=== PATIENT | female | born 1980 | race Caucasian/White ===

== ENCOUNTER 2018-01-31 21:03 | Inpatient (IN) | END 2018-02-02 15:02 | disposition home or self-care (01) | DRG 313 ==

== ENCOUNTER 2018-12-20 00:02 | Emergency (ER) | payer OTHER ==
[~2018-12-20] VITALS: Ht 157.5 cm; Wt 91.8 kg
[~2018-12-20 00:02] MED LIST: FER325 PO; OMEP20CA16 PO
[2018-12-20 00:24] VITALS: Ht 157.5 cm; Wt 91.8 kg
[2018-12-20] MEDS ORDERED: CYCL5TAB PO (03:20)
[2018-12-20] MEDS ORDERED: CALC-143 PO (03:20)
[2018-12-20] MEDS ORDERED: NAPR-685 PO (03:20)
[2018-12-20] MEDS ORDERED: CYAN100080 PO (03:20)
[2018-12-20] MEDS ORDERED: DICL100G33 TOPICAL (03:20)
--- NOTE | 2018-12-20 04:10 | ERD ---
ER Documentation Chief Complaint Chief Complaint chest pain since 1600 HPI This is a 38-year-old female with a past medical history of prediabetes, GERD who is presenting with left-sided chest and shoulder pain, beginning this evenin g, exacerbated by movement of the left shoulder. The patient has had this in the past and has been worked up for this. The patient reports that the last time this happened, she was told that everything was normal. The patient reports improvement of her pain when she does not move. She does not endorse any trauma or injury. She denies any diaphoresis or lightheadedness or dizziness or nausea or vomiting or shortness of breath. The patient denies feeling sick recently. The patient denies fever or chills. The patient has had no headache or vision changes. The patient does not endorse neck or back pain. The patient denies abdominal pain. The patient denies changes to bowel movements or urination. The patient has had no focal deficits. The patient has had no weakness or numbness or tingling to the face or extremities. ROS All systems reviewed and are negative except as per history of present illness. Medications Home Meds Reported Medications Calcium Citrate/Vitamin D (Citracal-Vitamin D 200 MG-250) 1 Each Tablet, 1 EACH PO BID, TAB 12/20/18 Cyanocobalamin* (Vitamin B-12*) 1,000 Mcg Tablet.sa, 1000 MCG PO DAILY, TAB 12/20/18 Cyclobenzaprine Hcl* (Cyclobenzaprine Hcl*) 5 Mg Tablet, 5 MG PO DAILY 12/20/18 Diclofenac Sodium (Diclofenac Sodium) 100 Gm Gel..gram., 100 GM TOPICAL PRN for PAIN 12/20/18 Naproxen* (Naproxen*) 375 Mg Tablet, 375 MG PO BID for 30 Days, #60 12/20/18 Omeprazole* (Omeprazole*) 20 Mg Capsule.dr, 20 MG PO DAILY, #30 CAP 01/31/18 Ferrous Sulfate* (Ferrous Sulfate*) 325 Mg Tabec, 325 MG PO BID, TAB 01/31/18 Allergies Allergies: Coded Allergies: No Known Allergy (Unverified , 12/20/18) PMhx/Soc History of Surgery: Yes (cholecystectomy) Anesthesia Reaction: No Hx Neurological Disorder: No Hx Respiratory Disorders: No Hx Cardiac Disorders: No Hx Psychiatric Problems: No Hx Miscellaneous Medical Probl: Yes (prediabetic) Hx Alcohol Use: No Hx Substance Use: No Hx Tobacco Use: No Smoking Status: Never smoker FmHx Family History: No diabetes Physical Exam Vitals Vital Signs Date Temp Pulse Resp B/P (MAP) Pulse Ox O2 O2 Flow FiO2 Time Delivery Rate 12/20/18 98.3 78 18 123/77 97 Room Air 02:33 (92) 12/20/18 98.3 85 18 130/81 100 Room Air 01:58 (97) 12/20/18 98.3 100 18 160/71 97 00:24 (100) Physical Exam Const: No apparent distress, well-developed, well-nourished Head: Normocephalic, Atraumatic Eyes: Normal Conjunctiva. Extraocular movements intact. Pupils equal, round and reactive to light ENT: Normal External Ears, Nose and Mouth. Neck: Full range of motion. No meningismus. Resp: Clear to auscultation bilaterally, No wheezes, rales or rhonchi Cardio: Regular rate and rhythm. No murmurs, rubs or gallops Abd: Soft, non tender, non distended. Normal bowel sounds Skin: No petechiae or rashes Back: No midline tenderness. No CVA tenderness Ext: No cyanosis, or edema. Full range of motion to the left shoulder. Neur: Awake and alert, oriented 4. Cranial nerves intact. No facial droop. Normal strength, sensation and coordination. Psych: Normal Mood and Affect Result Diagram: 12/20/18 0150 12/20/18 0150 Results 24 hrs Laboratory Tests Test 12/20/18 01:50 White Blood Count 10.0 10^3/ul Red Blood Count 4.34 10^6/ul Hemoglobin 12.4 g/dl Hematocrit 38.6 % Mean Corpuscular Volume 88.9 fl Mean Corpuscular Hemoglobin 28.6 pg Mean Corpuscular Hemoglobin Concent 32.1 g/dl Red Cell Distribution Width 12.7 % Platelet Count 331 10^3/UL Mean Platelet Volume 9.0 fl Immature Granulocytes % 0.400 % Neutrophils % 56.0 % Lymphocytes % 31.9 % Monocytes % 7.5 % Eosinophils % 3.7 % Basophils % 0.5 % Nucleated Red Blood Cells % 0.0 /100WBC Immature Granulocytes # 0.040 10^3/ul Neutrophils # 5.6 10^3/ul Lymphocytes # 3.2 10^3/ul Monocytes # 0.8 10^3/ul Eosinophils # 0.4 10^3/ul Basophils # 0.1 10^3/ul Nucleated Red Blood Cells # 0.0 10^3/ul Sodium Level 143 mmol/L Potassium Level 3.8 mmol/L Chloride Level 104 mmol/L Carbon Dioxide Level 30 mmol/L Anion Gap 9 Blood Urea Nitrogen 8 mg/dl Creatinine 0.57 mg/dl Est Glomerular Filtrat Rate mL/min > 60 mL/min Glucose Level 114 mg/dl Calcium Level 9.5 mg/dl Troponin I < 0.012 ng/ml Procedures/MDM MDM The patient's presentation warrants further investigation. Previous medical records, if available, were reviewed. LABS The patient's laboratory testing was obtained and reviewed. No emergent treatment was required unless described below. CBC: No E/o of systemic infection or severe anemia or thrombocytopenia BMP: No E/o severe acidosis or alkalosis or renal failure or diabetic ketoacidosis Troponin: No E/o acute ischemia EKG EKG read by me: Rate/Rhythm: Regular rate and rhythm at a rate of 92 bpm Intervals: Normal. Incomplete right bundle branch block Clarissa: Normal Impression: No evidence of acute ischemia or arrhythmia IMAGING Imaging and Radiology interpretation reviewed. CXR FINDINGS: The cardiomediastinal silhouette is within normal limits. There is persistent moderate elevation right hemidiaphragm. There is mild right lower lung zone subsegmental atelectasis. There is no evidence for focal consolidatio n. There is no evidence for congestive heart failure. There is no evidence for pneumothorax. The osseous structures are intact. IMPRESSION: Persistent moderate right hemidiaphragm elevation with compressive subsegmental atelectasis. Electronically viewed and signed by Husam Calvillo MD on 12/20/2018 03:06 TREATMENT/DISPOSITION The patient presents with chest and shoulder pain. A musculoskeletal etiology is certainly a possibility, but this is a diagnosis of exclusion. A cardiac workup was completed. The patient's chest xray does not reveal pneumonia or pneumothorax or pleural effusions or pulmonary edema. She does not have a widened mediastinum and does not have signs or symptoms concerning for thoracic aortic aneurysm or dissection. The patient does not have pneumomediastinum or si gns concerning for esophageal tear or rupture. The patient has no clinical or radiographic signs of pericardial effusion or tamponade. The patient does not have pneumoperitoneum and I have decreased suspicion of viscus perforation as possible referred pain. The patient does not have a history of heart failure and I have low suspicion for this. The patient does not have a diagnosis of COPD and is not wheezing today. The patient is not tachypneic or hypoxic. The patient is breathing comfortably and without pleuritic pain. The patient is not on hormonal therapy. The patient has no history of clotting or bleeding disorders. The patient has no calf tenderness. The patient has had no hemoptysis. I have decreased suspicion for PE. The patient's troponin and EKG are reassuring. I have low suspicion for acute coronary syndrome. The patient's HEART score is equal to or less than 3. This stratifies the patient into the low risk (<1%) group for an major adverse cardiac event within the next 30 days. Shared decision making was enacted. The risks and benefits of admission and discharge were discussed with the patient and it was ultimately decided that the patient would be discharged with close outpatient follow up and evaluation for functional testing within 72 hours. The patient was treated with Toradol. Upon reevaluation of the patient, symptoms have improved. No emergent diagnoses were identified. At this time, I feel that the patient stable for discharge. The patient was instructed to follow-up with a primary care physician in 1-3 days. The patient will be given strict precautions with which to return to the emergency department. Prescriptions: Ibuprofen The patient's blood pressure was elevated at greater than 120/80 while in the emergency department. The patient was otherwise stable with no evidence of hypertensive urgency or emergency. The patient does not require admission for blood pressure control. I have discussed with the patient the risks of hypertension. I have instructed the patient to return to the ER for any new or worsening symptoms including chest pain, shortness of breath, headache, blurred vision, confusion, nausea, vomiting or LOC. I have advised the patient to follow up with the primary care physician for outpatient monitoring and treatment for hypertension in 1-3 days. Disclaimer: Inadvertent spelling and grammatical errors are likely due to EHR/dictation software use and do not reflect on the overall quality of patient care. Note that the electronic time recorded on this note does not necessarily reflect the actual time of the patient encounter. Departure Diagnosis: Primary Impression: Nonspecific chest pain Additional Impression: Left shoulder pain Chronicity: acute Qualified Codes: M25.512 - Pain in left shoulder Condition: Stable ILA MI MD Dec 20, 2018 04:10
[2018-12-20] MEDS ORDERED: KETOROLAC 15 MG INJ IV STA (04:16)
[2018-12-20] MEDS ORDERED: IBUP-1542 PO (04:19)
[2018-12-20 04:31] VITALS: BP 114/81; PULSE 77; RESP 18
== END 2018-12-20 04:33 | disposition home or self-care (01) ==
LOC: E/R 00:02
DX: M25.512 Pain in left shoulder (principal)
CPT/HCPCS: 36415; 71045; 80048; 84484; 85025; 93005; 96374; J1885; Z7502

== ENCOUNTER 2019-02-12 09:53 | Day surgery (SDC) | payer OTHER ==
[~2019-02-12] VITALS: Ht 160 cm; Wt 90.8 kg
[~2019-02-12 09:53] MED LIST changes: +CALC-143 PO; +CYAN100080 PO; +CYCL5TAB PO; +DICL100G33 TOPICAL; +IBUP-1542 PO; +NAPR-685 PO
[2019-02-12 10:27] VITALS: Ht 160 cm; Wt 90.8 kg
[2019-02-12 10:53] VITALS: BP 116/75; PULSE 81; RESP 18
--- NOTE | 2019-02-12 11:08 | PREAC ---
Date/Time of Note Date/Time of Note DATE: 02/12/19 TIME: 11:07 Anesthesia Eval and Record Evaluation Time Pre-Procedure Interview DATE: 02/12/19 TIME: 11:07 Age 38 Sex female NPO: 8 hrs Preoperative diagnosis ABDOMINAL PAIN, DIARRHEA Planned procedure EGD AND COLON Past Medical History Past Medical History: Includes Musculoskeletal: Osteoarthritis GI: GERD, Obesity Surgery & Anesthesia Issues No known issue Meds Anticoagulation: No Beta Alexa within 24 hr: No Reason Beta Alexa not given: Pt. not on B-Alexa Active Scripts Ibuprofen* (Motrin*) 600 Mg Tab, 600 MG PO Q6H PRN for PAIN AND/OR INFLAMMATION, #30 TAB Prov:ILA MI MD 12/20/18 Reported Medications Calcium Citrate/Vitamin D (Citracal-Vitamin D 200 MG-250) 1 Each Tablet, 1 EACH PO BID, TAB 12/20/18 Cyanocobalamin* (Vitamin B-12*) 1,000 Mcg Tablet.sa, 1000 MCG PO DAILY, TAB 12/20/18 Naproxen* (Naproxen*) 375 Mg Tablet, 375 MG PO BID for 30 Days, #60 12/20/18 Omeprazole* (Omeprazole*) 20 Mg Capsule.dr, 20 MG PO DAILY, #30 CAP 01/31/18 Discontinued Reported Medications Cyclobenzaprine Hcl* (Cyclobenzaprine Hcl*) 5 Mg Tablet, 5 MG PO DAILY 12/20/18 Diclofenac Sodium (Diclofenac Sodium) 100 Gm Gel..gram., 100 GM TOPICAL PRN for PAIN 12/20/18 Ferrous Sulfate* (Ferrous Sulfate*) 325 Mg Tabec, 325 MG PO BID, TAB 01/31/18 Meds reviewed: Yes Allergies Coded Allergies: No Known Allergy (Unverified , 12/20/18) Allergies Reviewed: Yes Labs/Studies Labs Reviewed: Reviewed by anesthesiologist test: Negative Pre-procedure Exam Last vitals Vital Signs Date Temp Pulse Resp B/P (MAP) Pulse Ox O2 O2 Flow FiO2 Time Delivery Rate 02/12/19 98.7 81 18 116/75 98 Room Air 10:53 (89) Airway: Adequate mouth opening, Adequate thyromental dist Mallampati: Mallampati II Teeth: Normal Lung: Normal Heart: Normal ASA Physical Status ASA physical status: 2 Emergency: None Planned Anesthetic General/MAC: MAC Planned Pain Management Parenteral pain med Pre-operative Attestations Prior to commencing anesthesia and surgery, the patient was re-evaluated, there was verification of: *The patient's identity *The results of appropriate recent lab work and preoperative vital signs *The above evaluation not changing prior to induction *Anesthetic plan, risk benefits, alternative and complications discussed with patient/family; questions answered; patient/family understands, accepts and wishes to proceed. TASHA LAWRENCE Feb 12, 2019 11:08
[2019-02-12] MEDS ORDERED: LIDOCAINE 2% (SDV) 5 ML INJ ONE (11:11)
[2019-02-12] MEDS ORDERED: PROPOFOL 60 ML ONE (11:11)
[2019-02-12] MEDS ORDERED: EPHEDrine SULFATE 50 MG/5 ML SYG IV PRN (11:30)
[2019-02-12] MEDS ORDERED: FENTAnyl 50 MCG/ML VIAL IV PRN (11:30)
[2019-02-12] MEDS ORDERED: hydrALAzine 20 MG INJ IV PRN (11:30)
[2019-02-12] MEDS ORDERED: LABETALOL HCL 20MG INJ IV PRN (11:30)
[2019-02-12] MEDS ORDERED: ONDANSETRON 4 MG INJ IV PRN (11:30)
--- NOTE | 2019-02-12 11:47 | PAC ---
Date/Time of Note Date/Time of Note DATE: 02/12/19 TIME: 11:47 Post-Anesthesia Notes Post-Anesthesia Note Last documented vital signs Vital Signs Date Temp Pulse Resp B/P (MAP) Pulse Ox O2 O2 Flow FiO2 Time Delivery Rate 02/12/19 98.7 81 18 116/75 98 Room Air 1147 (89) Activity: WNL Respiratory function: WNL Cardiovascular function: WNL Mental status: Baseline Pain reasonably controlled: Yes Hydration appropriate: Yes Nausea/Vomiting absent: Yes TASHA LAWRENCE Feb 12, 2019 11:47
[2019-02-12 11:56] VITALS: BP 114/62; PULSE 82; RESP 18
[2019-02-12 12:01] VITALS: BP 112/61; PULSE 82; RESP 18
[2019-02-12 12:06] VITALS: BP 119/64; PULSE 90; RESP 20
--- NOTE | 2019-02-12 16:56 | CONS ---
DATE OF ADMISSION: 02/12/2019 DATE OF CONSULTATION: PATIENT NAME: STEWART GOEL TYPE OF CONSULTATION: Preoperative gastroenterology. Dear Dr. Casanova: I thank you very much for this kind referral. HISTORY OF PRESENT ILLNESS: Ms. Stewart Goel is a 38-year-old female patient who has been referred to me for further evaluation of upper abdominal pain and chronic heartburn, not responding to therap y with omeprazole. No past history of peptic ulcer disease. The patient has been taking naproxen fo r arthritis. Status post cholecystectomy. No history of liver disease. The patient also complains of urgency to have a bowel movement after eating with diarrhea. No rectal bleeding. No past history of inflammatory bowel disease. Not a hypertensive or diabetic. No heart disease, lung problem or k idney disease. SOCIAL HISTORY: Nonsmoker. No alcohol abuse. FAMILY HISTORY: No family history of gastrointestinal tract neoplasm. ALLERGIES: NO DRUG ALLERGIES. MEDICATIONS: 1. Omeprazole. 2. Naproxen. PHYSICAL EXAMINATION: VITAL SIGNS: She is 5 feet, 3 inches tall and weighs 200 pounds. HEART: Normal heart sounds. LUNGS: Clear. ABDOMEN: Soft. No masses. Normal bowel sounds. NEUROLOGIC: Normal. IMPRESSION: 1. Upper abdominal pain and chronic heartburn, not responding to therapy with omeprazole. 2. Urgency to have a bowel movement after eating with chronic diarrhea. 3. Arthritis and the patient is on naproxen. 4. Status post cholecystectomy. 5. Obesity. PLAN: 1. The patient was strongly advised to lose weight. 2. Continue omeprazole. 3. Endoscopy and colonoscopy for further evaluation. 4. Because of the obesity with a short thick neck, she needs monitored anesthesia care. The procedures and possible complications are well explained to the patient. She understands and con sents to the procedures. I thank you once again. With warmest personal regards, Dictated By: VIRGINIA MANDEL/STACIA Conf#: [id number] DID#: [id number]
== END 2019-02-12 12:23 | disposition home or self-care (01) ==
LOC: GIL 09:53
PROVIDERS: ATTEND Internal Medicine Gastroenterology
DX: R19.4 Change in bowel habit (principal); K64.8 Other hemorrhoids; K29.50 Unspecified chronic gastritis without bleeding
CPT/HCPCS: 43239; 45378; 88305; 88312; Z7610

== ENCOUNTER 2019-03-03 00:53 | Emergency (ER) | payer OTHER ==
[~2019-03-03] VITALS: Ht 157.5 cm; Wt 91.8 kg
[~2019-03-03 00:53] MED LIST changes: -CYCL5TAB PO; -DICL100G33 TOPICAL; -FER325 PO
[2019-03-03 00:59] VITALS: Ht 157.5 cm; Wt 91.8 kg
[2019-03-03] MEDS ORDERED: IBUP-1542 PO (05:29)
[2019-03-03] MEDS ORDERED: LORA10TA3 PO (05:29)
[2019-03-03 06:04] VITALS: BP 126/82; PULSE 103; RESP 18
--- NOTE | 2019-03-03 17:18 | ERD ---
ER Documentation Chief Complaint Chief Complaint ST, nasal congestion X 2 days HPI 38-year-old female presents with complaint of sore throat and congestion for the past 3 days. States that she feels like she has some postnasal drip and she thinks she has allergies. Denies any fevers, trismus, drooling,Muffled voice. Denies treatments. ROS All systems reviewed and are negative except as per history of present illness. Medications Home Meds Active Scripts Loratadine* (Loratadine*) 10 Mg Tablet, 10 MG PO DAILY for allergies, #30 TAB Prov:SALAS DEUTSCH 03/03/19 Ibuprofen* (Motrin*) 600 Mg Tab, 600 MG PO Q6 for sore throat, #30 TAB Prov:SALAS DEUTSCH 03/03/19 Ibuprofen* (Motrin*) 600 Mg Tab, 600 MG PO Q6H PRN for PAIN AND/OR INFLAMMATION, #30 TAB Prov:ILA MI MD 12/20/18 Reported Medications Calcium Citrate/Vitamin D (Citracal-Vitamin D 200 MG-250) 1 Each Tablet, 1 EACH PO BID, TAB 12/20/18 Cyanocobalamin* (Vitamin B-12*) 1,000 Mcg Tablet.sa, 1000 MCG PO DAILY, TAB 12/20/18 Naproxen* (Naproxen*) 375 Mg Tablet, 375 MG PO BID for 30 Days, #60 12/20/18 Omeprazole* (Omeprazole*) 20 Mg Capsule.dr, 20 MG PO DAILY, #30 CAP 01/31/18 Allergies Allergies: Coded Allergies: No Known Allergy (Unverified , 12/20/18) PMhx/Soc History of Surgery: Yes (CHOLECYSTECTOMY) Anesthesia Reaction: No Hx Neurological Disorder: No Hx Respiratory Disorders: No Hx Cardiac Disorders: No Hx Psychiatric Problems: No Hx Miscellaneous Medical Probl: No Hx Alcohol Use: No (OCCASIONALLY ) Hx Substance Use: No Hx Tobacco Use: No FmHx Family History: No diabetes, No coronary disease, No other Physical Exam Vitals Vital Signs Date Temp Pulse Resp B/P (MAP) Pulse Ox O2 O2 Flow FiO2 Time Delivery Rate 03/03/19 98.1 103 18 126/82 98 Room Air 06:04 (97) 03/03/19 98.2 95 18 163/134 61 00:59 (144) Physical Exam Const: No acute distress Head: Atraumatic Eyes: Normal Conjunctiva ENT: Normal External Ears, Nose and Mouth. Tonsils are moderately erythematous without edema or exits bilaterally. Uvula is midline. There are no peritonsillar masses noted. Neck: Full range of motion. No meningismus. Resp: Clear to auscultation bilaterally Cardio: Regular rate and rhythm, no murmurs Abd: Soft, non tender, non distended. Normal bowel sounds Skin: No petechiae or rashes Back: No midline or flank tenderness Ext: No cyanosis, or edema Neur: Awake and alert Psych: Normal Mood and Affect Procedures/MDM MDM: Rapid strep was negative. Patient's presentation is consistent with viral pharyngitis. I have low suspicion for epiglottitis, peritonsilar abscess, ludwigs angina, retropharyngeal abscess, or other emergent etiologies based on patients exam and history. Patient discharged with strict ER precautions. Patient advised to follow up with PMD. All questions answered at discharge. Departure Diagnosis: Primary Impression: Viral pharyngitis Condition: Stable Patient Instructions: Understanding Nasal Allergies Referrals: [facility] YOU HAVE RECEIVED A MEDICAL SCREENING EXAM AND THE RESULTS INDICATE THAT YOU DO NOT HAVE A CONDITION THAT REQUIRES URGENT TREATMENT IN THE EMERGENCY DEPARTMENT. FURTHER EVALUATION AND TREATMENT OF YOUR CONDITION CAN WAIT UNTIL YOU ARE SEEN IN YOUR DOCTORS OFFICE WITHIN THE NEXT 1-2 DAYS. IT IS YOUR RESPONSIBILITY TO MAKE AN APPOINTMENT FOR FOLOW-UP CARE. IF YOU HAVE A PRIMARY DOCTOR --you should call your primary doctor and schedule an appointment IF YOU DO NOT HAVE A PRIMARY DOCTOR YOU CAN CALL OUR PHYSICIAN REFERRAL HOTLINE AT IF YOU CAN NOT AFFORD TO SEE A PHYSICIAN YOU CAN CHOSE FROM THE FOLLOWING [facility] [address] [facility] [address] [facility] [address] [facility] [address] [facility] [address] [facility]. [address] Additional Instructions: FOLLOW UP WITH YOUR PRIMARY CARE PHYSICIAN TOMORROW.Return to this facility if you are not improving as expected. SALAS DEUTSCH March 03, 2019 17:06
== END 2019-03-03 06:05 | disposition home or self-care (01) ==
LOC: FTE 00:53
DX: J02.9 Acute pharyngitis, unspecified (principal)
CPT/HCPCS: 87880; 99283